=== PATIENT | female | born 1985 | race Caucasian/White ===

== ENCOUNTER 2019-01-08 16:26 | Inpatient (IN) | payer OTHER ==
[~2019-01-08] VITALS: Ht 167.6 cm; Wt 96.2 kg
[2019-01-08] MEDS ORDERED: MISOPROSTOL 25 MCG TABLET VG SCH (17:00)
[2019-01-08] MEDS ORDERED: OXYTOCIN-LR 20 UNITS/1000 ML 1,000 ML IV SCH ×2 (17:00→18:30)
[2019-01-08 18:04] LABS: BASOPHILS % (AUTO) 0.5 % (0.0-5.0); EOSINOPHILS % (AUTO) 0.6 % (0.0-8.0); HEMATOCRIT 38.3 % (36-48); LYMPHOCYTES % (AUTO) 14.5 % (21.0-51.0); MEAN CORPUSCULAR HEMOGLOBIN 31.7 pg (27.0-33.0); MEAN CORPUSCULAR HGB CONC 33.6 g/dL (32.0-36.0); MEAN CORPUSCULAR VOLUME 94.2 fL (79-99); MONOCYTES % (AUTO) 6.8 % (3.0-13.0); NEUTROPHILS % (AUTO) 77.6 % (40.0-77.0); PLATELET COUNT (AUTO) 303 K/uL (130-400); RED BLOOD CELL COUNT(AUTO) 4.07 MIL/uL (4.00-5.50); RED CELL DISTRIBUTION WIDTH 14.5 % (11.0-15.5); WHITE BLOOD COUNT (AUTO) 9.5 K/uL (4.8-10.8)
[2019-01-08 18:10] LABS: APPEARANCE,URINE Clear (CLEAR); BILIRUBIN,URINE Negative (NEGATIVE); COLOR,URINE Yellow (YELLOW); GLUCOSE, URINE (UA) Negative (NEGATIVE); KETONES,URINE Negative (NEGATIVE); LEUKOCYTE ESTERASE ,URINE Negative (NEGATIVE); NITRATE,URINE Negative (NEGATIVE); OCCULT BLOOD,URINE Negative (NEGATIVE); PROTEIN,URINE Negative (NEGATIVE); UROBILINOGEN,URINE 0.2 mg/dL (0.2-1.0)
[2019-01-08 18:15] LABS: CREATININE 0.6 mg/dL (0.5-1.5)
[2019-01-08 18:19] LABS: BILIRUBIN,TOTAL 0.3 mg/dL (0.2-1.0); TOTAL PROTEIN, SERUM 7.6 g/dL (6.0-8.3)
[2019-01-08 18:28] LABS: INR 0.91 (0.85-1.15); PARTIAL THROMBOPLASTIN TIME 25.6 SEC (26.3-35.5); PROTHROMBIN TIME 9.6 SEC (9.6-11.6)
[2019-01-08 19:15] VITALS: BP 138/89
[2019-01-08] MEDS ORDERED: PREN1TAB80 PO (22:26)
[2019-01-08] MEDS ORDERED: OMEP10CA5 PO (22:27)
[2019-01-08] MEDS ORDERED: CALC500T13 PO (22:27)
[2019-01-09] VITALS (9 sets, daily range): BP systolic 128–144; BP diastolic 77–90
[2019-01-09] MEDS ORDERED: CEFAZOLIN SODIUM 1 GM VIAL IVP PRN (11:45)
[2019-01-09] MEDS ORDERED: LACTATED RINGERS 1000ML 1,000 ML IV SCH (11:45)
[2019-01-09] MEDS ORDERED: CEFAZOLIN SODIUM 1 GM VIAL IVP ONE (12:30)
[2019-01-09] MEDS ORDERED: PROMETHAZINE HCL 25 MG/ML 1ML AMPULE IM PRN (14:00)
[2019-01-09] MEDS ORDERED: SODIUM CHLORIDE 0.9% 10 ML VIAL IVP PRN (14:00)
[2019-01-09] MEDS ORDERED: MEPERIDINE-PF 75 MG/ML SYG IM PRN (14:00)
[2019-01-09] MEDS ORDERED: OXYTOCIN-LR 20 UNITS/1000 ML 1,000 ML IV PRN (14:00)
--- NOTE | 2019-01-09 14:50 | NUR ---
UNIVERSAL PRECAUTIONS: INSTRUCTED PT AND ON GOOD HAND WASHING TECH AT ALL TIMES.
--- NOTE | 2019-01-09 14:50 | NUR ---
ASSESSMENT : TRANSFERRED FROM L&D TO [facility] VIA BED WITH HER BABY IN THE CRIB AND AT HER SIDE. MADE COMFORTABLE. INSTRUCTED ON FUNDAL MASSAGE AND RETURNED DEMONSTRATION. PHAM VANN. DELILAH CARE DONE. F/C DRAINING CL YELLOW URINE. IV FLUIDS INF WELL. TO PUMP AT 125MLS AN HR. EXPLAINED POC AND UNDERSTANDING VERBALIZED.
--- NOTE | 2019-01-09 15:10 | NUR ---
DX SHINGLES: NOTED APPROX 6CM RED AREA TO RT BUTTOCK WITH 2 SM WHELPS, DENIES PAIN OR ITCHING TO AREA. STATES DX WITH SHINGLES 2 YRS AGO AND THAT IS HOW THEY START.
--- NOTE | 2019-01-09 15:36 | NUR ---
IV FLUIDS: IV RATE TO 150MLS AN HR AND INF WELL.
[2019-01-09] MEDS ORDERED: ONDANSETRON HCL 4 MG/2 ML VIAL IVP PRN (15:45)
[2019-01-09] MEDS ORDERED: EPHEDRINE SULFATE 50 MG/ML AMPULE IVP PRN (15:45)
[2019-01-09] MEDS ORDERED: DiphenhydrAMINE HCL 50 MG/ML VIAL IVP PRN (15:45)
[2019-01-09] MEDS ORDERED: NALOXONE HCL 0.4 MG/1 ML ML IVP PRN ×3 (15:45)
--- NOTE | 2019-01-09 17:38 | NUR ---
BONDING: BREAST FEEDING.
[2019-01-09] MEDS: DEXTROSE 5 %-0.45 % NACL 1,000 ML IV PRN (20:47)
[2019-01-10 03:25] VITALS: BP 134/90
[2019-01-10] MEDS: DEXTROSE 5 %-0.45 % NACL 1,000 ML IV PRN (03:37)
--- NOTE | 2019-01-10 06:17 | NUR ---
OSULLIVAN CATHETER DC'DPT. UP IN CHAIRAFTERWARDS, ASSISTED BY CIPRIANO (PCP). PT INST TO CALL FOR ASSIST BEFORE GETTING OOB, VERBALIZED UNDERSTANDING.
[2019-01-10 06:18] LABS: HEMATOCRIT 33.7 % (36-48); MEAN CORPUSCULAR HEMOGLOBIN 31.7 pg (27.0-33.0); MEAN CORPUSCULAR HGB CONC 33.9 g/dL (32.0-36.0); MEAN CORPUSCULAR VOLUME 93.4 fL (79-99); PLATELET COUNT (AUTO) 273 K/uL (130-400); RED BLOOD CELL COUNT(AUTO) 3.61 MIL/uL (4.00-5.50); RED CELL DISTRIBUTION WIDTH 14.1 % (11.0-15.5); WHITE BLOOD COUNT (AUTO) 10.7 K/uL (4.8-10.8)
[2019-01-10] MEDS ORDERED: SODIUM CHLORIDE 0.9% 10 ML VIAL IVP PRN (07:30)
[2019-01-10] MEDS ORDERED: ACETAMINOPHEN-CODEINE 300/30MG TAB PO PRN (07:30)
[2019-01-10] MEDS ORDERED: IBUPROFEN 600 MG TABLET PO PRN (07:30)
[2019-01-10] MEDS ORDERED: HYDROCODONE/ACETAMINOPHEN 5/325 MG TAB PO PRN (07:30)
[2019-01-10] MEDS ORDERED: ACETAMINOPHEN EXTRA STRENGTH 500 MG TABLET PO PRN (07:30)
[2019-01-10] MEDS ORDERED: BISACODYL 10 MG SUPP.RECT RC PRN (07:30)
--- NOTE | 2019-01-10 08:06 | NUR ---
ASSESSMENT: RECEIVED SITTING UP IN CHAIR. EXPLAINED POC AND UNDERSTANDING VERBALIZED. ASSISSTED TO BATHROOM, STEADY GAIT. VOIDED LG AMTS OF URINE. INSTRUCTED ON DELILAH CARE AND RETURNED DEMONSTRATION.
--- NOTE | 2019-01-10 08:10 | NUR ---
HYGEINE: INSTRUCTED PT ON GOOD HAND WASHING TECHNIQUE AT ALL TIMES. FOLLOWING UNIVERSAL PRECAUTIONS.
[2019-01-10 08:11] VITALS: BP 118/90
[2019-01-10] MEDS: DOCUSATE SODIUM 100 MG CAP PO SCH ×2 (09:00→21:41)
[2019-01-10] MEDS: SIMETHICONE 80 MG TAB.CHEW PO PRN ×3 (09:00→21:41)
--- NOTE | 2019-01-10 09:00 | NUR ---
DX SHINGLES: LIGHT PINK AREA TO RT BUTTOCK NO WHELPS NOTED.
--- NOTE | 2019-01-10 10:13 | NUR ---
ASSESSMENT: DR IBARRA ASSESSED PT, ABD INCISION. DISCUSSED POC
[2019-01-10 11:39] VITALS: BP 139/84
--- NOTE | 2019-01-10 11:40 | NUR ---
NUTRITION: BREAST FEEDING.
[2019-01-10] MEDS: IBUPROFEN 800 MG TAB PO SCH ×2 (13:31→21:42)
--- NOTE | 2019-01-10 13:34 | NUR ---
BONDING: BREAST FEEDING.
--- NOTE | 2019-01-10 15:00 | NUR ---
HYGEINE: TOOK SHOWER.
[2019-01-10 16:11] VITALS: BP 122/86
--- NOTE | 2019-01-10 18:50 | NUR ---
DX SHINGLES: NOTED LIGHT PINK AREA APPROX 4CMS TO RT BUTTOCK WITH NO WHELPS. PT DENIES PAIN OR ITCHING TO AREA.
--- NOTE | 2019-01-10 18:57 | NUR ---
ELIMINATION: AMB TO BATHROOM AND VOIDED LG AMTS OF URINE. AMB WITH NO DISCOMFORT.
--- NOTE | 2019-01-10 19:10 | NUR ---
ACTIVITY: AMB IN HALLWAY WITH HER .
[2019-01-10 19:29] VITALS: BP 114/99
[2019-01-10 23:27] VITALS: BP 129/84
[2019-01-11 03:34] VITALS: BP 128/58
[2019-01-11] MEDS: IBUPROFEN 800 MG TAB PO SCH ×2 (05:42→14:00)
[2019-01-11 07:36] VITALS: BP 133/89
--- NOTE | 2019-01-11 07:55 | NUR ---
PHYSICIAN ROUNDING DR. THALIA IBARRA AT BEDSIDE TO ASSESS AND TALK TO PT. NEW ORDERS RECEIVED FOR DISCHARGE.
[2019-01-11] MEDS: DOCUSATE SODIUM 100 MG CAP PO SCH (09:13)
[2019-01-11] MEDS: SIMETHICONE 80 MG TAB.CHEW PO PRN (09:13)
--- NOTE | 2019-01-11 10:06 | NUR ---
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 This is second child for couple, they have Caity 5yrs old and NB Montpelierjaime Kam. 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 Pt has [facility] and no government assistance. Couple has basic items for baby including car seat and Dr Bustos will follow after dc. Pt reports hx of post depression after of 4yro. Pt states she experienced feelings of anxiety, withdrawal, difficulty bonding with baby, cried a lot. Pt reports feeling suicidal and informed her PCP. Pt was dx with depression and anxiety and started on Effexor, Ativan prn, and Trazodone. Pt reports she took medication until this was confirmed. Pt wanting to restart medication but concerned because she wants to breast feed. Sw spoke to Yecenia, nursery nurse, associate relations specialist about concerns. Yecenia to meet with pt and and discuss concerns.Pt states she had good family support during this difficult time and family is on stand by again to help. Pt stated that she is very open about her mental health and would not have issue with talking to or family is needed, and will notify MD if she feels it is needed. Pt denies any hx of abuse, domestic violence, legal, CPS, or substance abuse issues. Addendum: 01/11/19 at 1021 by HAZEL KAHN SS Amended: Links added.
[2019-01-11 11:33] VITALS: BP 133/86
--- NOTE | 2019-01-11 14:10 | NUR ---
DISCHARGE PT LEFT UNIT VIA WHEELCHAIR, WITH BABY IN ARMS, ACCOMPANIED BY SPOUSE. DENIED PAIN AND HAD NO COMPLAINTS. BABY STRAPPED IN CAR SEAT. PT AND BABY TRANSPORTED BY PERSONAL VEHICLE.
[2019-01-12 06:10] LABS: HEPATITIS Bs ANTIGEN SCREEN P Negative (Negative)
== END 2019-01-11 14:10 | disposition home or self-care (01) | DRG 787 ==
LOC: LDH 16:26 → WSH 01-09 14:50 → PREOBSVTOIN 01-18 16:24
PROVIDERS: ADMIT Specialist; ATTEND Specialist
PROC: 10D00Z1 Extraction of Products of Conception, Low, Open Approach (ICD-10-PCS; principal; 2019-01-09 11:00)
DX: O16.4 Unspecified maternal hypertension, complicating childbirth (principal); O98.52 Other viral diseases complicating childbirth; B02.9 Zoster without complications; Z37.0 Single live birth; Z3A.38 38 weeks gestation of pregnancy
CPT/HCPCS: 36415; 59510; 80053; 81003; 84550; 85025; 85027; 85384; 85610; 85730; 86592; 86850; 86900; 86901; 87340; A4344; G0378; J0690; J2590; J7120